=== PATIENT | female | born 1940 | race Caucasian/White ===

== ENCOUNTER → 2020-11-04 | Outpatient (CLI) | payer MEDICARE, OTHER ==
[~2020-11-04] MED LIST: AMOX875 PO; ASPI81CH PO; CENTRUM SILVER1 EAC2 PO; CHOL10002; CYAN500 PO; LOSA50 PO; LOVA40; METF500C PO; TIMO10T; TUMERIC; Xalatan2.5 ML BOTHEYES
== END | disposition home or self-care (01) ==
LOC: PLD 14:51 → LAB SHORT 14:51
DX: C44.41 Basal cell carcinoma of skin of scalp and neck (principal)
CPT/HCPCS: 88305

== ENCOUNTER → 2021-09-03 | Outpatient (CLI) | payer MEDICARE, OTHER | END | disposition home or self-care (01) | LOC: LAB SHORT 11:00 → LAB 11:00 | DX: N39.0 Urinary tract infection, site not specified (principal) | CPT/HCPCS: 87077; 87086; 87186 ==

== ENCOUNTER → 2021-10-28 | Outpatient (CLI) | payer MEDICARE, OTHER | END | disposition home or self-care (01) | LOC: LAB SHORT 12:00 | DX: N39.0 Urinary tract infection, site not specified (principal) | CPT/HCPCS: 87077; 87086; 87186 ==

== ENCOUNTER → 2021-11-13 | Outpatient (CLI) | payer MEDICARE, OTHER | END | disposition home or self-care (01) | LOC: LAB SHORT 12:43 | DX: N39.0 Urinary tract infection, site not specified (principal) | CPT/HCPCS: 87077; 87086; 87186 ==

== ENCOUNTER → 2022-02-25 | Outpatient (CLI) | payer MEDICARE, OTHER | END | disposition home or self-care (01) | LOC: LAB SHORT 12:00 | DX: R39.15 Urgency of urination (principal) | CPT/HCPCS: 87086 ==

== ENCOUNTER 2022-04-24 09:05 | Day surgery (SDC) | payer MEDICARE, OTHER ==
[~2022-04-24] VITALS: Ht 165.1 cm; Wt 60.1 kg
[2022-04-24] MEDS ORDERED: AMLO5 PO (10:12)
[2022-04-24] MEDS ORDERED: CLOP75 PO (10:12)
[2022-04-24] MEDS ORDERED: VIT1CAPS12 (10:13)
--- NOTE | 2022-04-24 10:13 | NUR ---
PT ADMITTED TO [facility]. AGREES WITH PLANNED SURGERY. LUNG SOUNDS CLEAR.
[2022-04-24] MEDS ORDERED: Calcium Acetat667 MG (10:14)
[2022-04-24] MEDS ORDERED: 1/2 NS 250ml250 ML (10:14)
[2022-04-24] MEDS ORDERED: FOLI1 PO (10:15)
[2022-04-24] MEDS ORDERED: HYDR1TAB94 PO (10:16)
[2022-04-24] MEDS ORDERED: MEMA5TAB PO (10:16)
[2022-04-24] MEDS ORDERED: ONDA4 (10:17)
--- NOTE | 2022-04-24 12:07 | NUR ---
04/24/22 1207 Azeb Peterson BUPIVACAINE 0.75% 30ML WAS RECONSTITUTED WITH 15ML OF 0.9% SODIUM CHLORIDE TO PRODUCE 0.5% BUPIVACAINE.
--- NOTE | 2022-04-24 14:23 | NUR ---
Ambulated to BR with steady gait. Vitals rechecked following low BP reading, improved to baseline. Denies pain. Discharge instructions reviewed with patient. Patient verbalizes understanding. Copy given to patient to take home. Discharged via wheelchair to private car for ride home. Dressing CDI
== END 2022-04-24 22:54 | disposition home or self-care (01) ==
LOC: ORSCMMR 09:05 → ORD 04-27 10:00 → ORSCMMR 04-27 10:00
PROVIDERS: Surgery
PROC: 05HM33Z Insertion of Infusion Device into Right Internal Jugular Vein, Percutaneous Approach (ICD-10-PCS; principal; 2022-04-24 11:00)
DX: C34.31 Malignant neoplasm of lower lobe, right bronchus or lung (principal); I10 Essential (primary) hypertension; Z79.01 Long term (current) use of anticoagulants; Z79.899 Other long term (current) drug therapy
CPT/HCPCS: 77001; 82947; C1788; J0690; J1100; J1642; J2405; J2704; J3010; J7120

== ENCOUNTER → 2022-06-11 | Outpatient (CLI) | payer MEDICARE, OTHER ==
[~2022-06-11] MED LIST changes: +1/2 NS 250ml250 ML; +AMLO5 PO; +CLOP75 PO; +Calcium Acetat667 MG; +FOLI1 PO; +HYDR1TAB94 PO; +MEMA5TAB PO; +ONDA4; +VIT1CAPS12
[2022-06-11 15:43] LABS: Albumin, Blood 2.7 g/dL (3.4-5.0); Albumin/Globulin Ratio 0.8 (0.8-1.8); Bilirubin, Total 0.4 mg/dL (0.1-1.0); Bun/Creatinine Ratio 20.6 (12.0-20.0); Calcium, Blood 6.2 mg/dL (8.5-10.1); Creatinine, Blood 0.63 mg/dL (0.40-1.00); Globulin, Blood 3.3 g/dL (2.2-4.0); Potassium, Blood 3.2 mmol/L (3.5-5.5)
== END | disposition home or self-care (01) ==
LOC: LAB SHORT 14:15
PROVIDERS: Nurse Practitioner
DX: C34.90 Malignant neoplasm of unspecified part of unspecified bronchus or lung (principal)
CPT/HCPCS: 80053

== ENCOUNTER 2023-02-18 08:11 | Day surgery (SDC) | payer MEDICARE, OTHER ==
[~2023-02-18] VITALS: Ht 165.1 cm; Wt 51.5 kg
--- NOTE | 2023-02-18 08:48 | NUR ---
02/18/23 0848 Karin Scott 0840: TETRACAINE TO RIGHT EYE 0842: PLEDGET TO RIGHT EYE BY [facility] [place]
[2023-02-18 09:51] VITALS: BP 129/59
== END 2023-02-18 10:00 | disposition home or self-care (01) ==
LOC: ORSCSDS 08:11
PROVIDERS: Ophthalmology
PROC: 08DJ3ZZ Extraction of Right Lens, Percutaneous Approach (ICD-10-PCS; principal; 2023-02-18 09:30)
DX: E11.36 Type 2 diabetes mellitus with diabetic cataract (principal); H25.13 Age-related nuclear cataract, bilateral; I10 Essential (primary) hypertension; H40.9 Unspecified glaucoma; Z87.891 Personal history of nicotine dependence; Z79.84 Long term (current) use of oral hypoglycemic drugs; Z79.899 Other long term (current) drug therapy
CPT/HCPCS: 82947; J2001; J2250; J3010; J3301; J7040; V2632

== ENCOUNTER 2023-03-04 08:16 | Day surgery (SDC) | payer MEDICARE, OTHER ==
[~2023-03-04] VITALS: Ht 165.1 cm; Wt 50.1 kg
[2023-03-04 09:55] VITALS: BP 124/57
== END 2023-03-04 10:11 | disposition home or self-care (01) ==
LOC: ORSCSDS 08:16
PROVIDERS: Ophthalmology
PROC: 08DK3ZZ Extraction of Left Lens, Percutaneous Approach (ICD-10-PCS; principal; 2023-03-04 09:30)
DX: E11.36 Type 2 diabetes mellitus with diabetic cataract (principal); H25.12 Age-related nuclear cataract, left eye; Z96.1 Presence of intraocular lens; E78.5 Hyperlipidemia, unspecified; Z86.73 Personal history of transient ischemic attack (TIA), and cerebral infarction without residual deficits; H35.30 Unspecified macular degeneration; I10 Essential (primary) hypertension; C34.90 Malignant neoplasm of unspecified part of unspecified bronchus or lung; D69.6 Thrombocytopenia, unspecified; Z79.84 Long term (current) use of oral hypoglycemic drugs; Z79.899 Other long term (current) drug therapy
CPT/HCPCS: 82947; J2001; J2250; J3010; J3301; J7040; V2632